=== PATIENT | male | born 1950 | race Hispanic/Latino ===

== ENCOUNTER → 2021-06-25 | Outpatient (CLI) | payer OTHER ==
[~2021-06-25] MED LIST: REGADENOSON 0.4 MG/5 ML PF SYG IVP SCH
== END | disposition home or self-care (01) ==
LOC: OIH 08:39
PROVIDERS: ATTEND Internal Medicine Cardiovascular Disease
DX: R06.02 Shortness of breath (principal); Z86.73 Personal history of transient ischemic attack (TIA), and cerebral infarction without residual deficits
CPT/HCPCS: 78452; 93017; 96374; A9500 ×2; J2785